=== PATIENT | female | born 1940 | race Caucasian/White ===

== ENCOUNTER → 2017-02-23 | Outpatient (CLI) | payer MEDICARE | END | disposition home or self-care (01) | LOC: PCVCCLINIC 15:14 | PROVIDERS: ATTEND Internal Medicine Cardiovascular Disease | DX: I25.708 Atherosclerosis of coronary artery bypass graft(s), unspecified, with other forms of angina pectoris (principal); I77.89 Other specified disorders of arteries and arterioles; E78.00 Pure hypercholesterolemia, unspecified; I12.9 Hypertensive chronic kidney disease with stage 1 through stage 4 chronic kidney disease, or unspecified chronic kidney disease; E11.22 Type 2 diabetes mellitus with diabetic chronic kidney disease; N18.9 Chronic kidney disease, unspecified; Z95.1 Presence of aortocoronary bypass graft; Z95.5 Presence of coronary angioplasty implant and graft; Z88.0 Allergy status to penicillin; Z88.8 Allergy status to other drugs, medicaments and biological substances; Z79.84 Long term (current) use of oral hypoglycemic drugs; Z79.899 Other long term (current) drug therapy; Z86.73 Personal history of transient ischemic attack (TIA), and cerebral infarction without residual deficits; Z90.710 Acquired absence of both cervix and uterus | CPT/HCPCS: 80061; 93005; G0463 ==

== ENCOUNTER → 2017-06-29 | Outpatient (CLI) | payer MEDICARE ==
[~2017-06-29] MED LIST: REGADENOSON 0.4 MG/5 ML DISP.SYRIN. IV ONE
--- NOTE | 2017-06-29 09:51 | PCVCIMAG ---
APPROVED REPORT Patient Location: Out-Patient Indications Stenosis Surgery/Intervention Carotid Stent: left Doppler Spectral Velocity Analysis PSV / EDVPSV / EDV ECA (R) 148 / 13 cm/sECA (L) 241 / 25 cm/s dICA (R) 90 / 33 cm/sdICA (L) 64 / 23 cm/s Breanne (R) 177 / 69 cm/smICA (L) 63 / 25 cm/s pICA (R) 190 / 59 cm/spICA (L) 46 / 19 cm/s Bulb (R) 101 / 30 cm/sBulb (L) 64 / 16 cm/s dCCA (R) 67 / 21 cm/sdCCA (L) 64 / 21 cm/s mCCA (R) 87 / 18 cm/smCCA (L) 90 / 26 cm/s Vert (R) 39 / 13 cm/sVert (L) 63 / 23 cm/s ICA/CCA ICA/CCA Findings The right carotid bulb has moderate calcified plaque. The right proximal internal carotid artery shows 60-70% stenosis. The right common carotid artery shows no significant stenosis. The right external carotid artery shows >50% stenosis. The left carotid bulb has mild plaque. The left proximal internal carotid artery shows no significant stenosis. Widely patent LICA and Lt common carotid artery stent. The left common carotid artery shows no significant stenosis. The left external carotid artery shows >60% stenosis. Conclusion 1. Right internal carotid artery stenosis (60-70%) 2. Widely patent left internal and common carotid artery stent 3. Antegrade vertebral flow
--- NOTE | 2017-06-29 11:37 | PCVCIMAG ---
EXAM: ULTRASOUND OF THE THYROID INDICATION: Thyroid nodules. FINDINGS: The right thyroid lobe measures 5.2 x 2.7 x 2.8 cm. The left thyroid lobe measures 5.0 x 2.3 x 1.9 cm. Several predominantly solid nodules throughout both thyroid lobes which contain small internal cystic spaces. The largest nodule on the right is in the mid thyroid lobe measuring 1.3 x 2.3 x 2.4 cm. The largest nodule on the left is also in the mid thyroid lobe measuring 1.1 x 1.5 x 1.7 cm. IMPRESSION: Findings most consistent with multinodular goiter. Predominantly solid nodules in both thyroid lobes as described. Further evaluation by ENT could be done if needed clinically. LOC:[id number]
--- NOTE | 2017-06-30 15:58 | PCVCIMAG ---
APPROVED REPORT Exam: Nuclear Stress Test Indication: CAD, Pre op shoulder surgery Patient Location: Out-Patient Stress Nurse: Candi Razo RN AR Tech:EMILEE Ceja Ht: 4 ft 10 in Wt: 155 lbs BSA: 1.63 m2 HR: 83 bpm BP: 185/83 mmHg BMI: 32.3 Rhythm: NSR Medical History Medical History: Hyperlipidemia, CVD, Age Medications: Amlodipine, Atorvastatin, Furosemide, Losartan, Meloxicam, Metformin, Metoprolol (held 24 hours) Priolosec, Ditropan Allergies: Cortiaone, PCN, Prednisone Previous Cardiac Procedures: Prior CABG, Cath 2015 Pretest Chest Pain Characteristics: No chest pain Exercise History: Sedentary AR EXAM: Myocardial Perfusion REST/STRESS Imaging Protocol: Rest Tc-99m/Stress Tc-99m 1 day Resting Data Rest SPECT myocardial perfusion imaging was performed in upright position 45 minutes following the intravenous injection of 15.9 mCi of Tc-99m Sestamibi. Time of rest injection: 0945 Date: 06/29/2017 Administration Route: IV Administration Site: Left Hand Pharmacologic Stress Pharmacologic stress test was performed by injecting Regadenoson 0.4 mg IV push followed by the intravenous injection of 42.9 mCi of Tc-99m Sestamibi. Time of stress injection: 1130 Date: 06/29/2017 Administration Route: IV Administration Site: Left Hand Gated Stress SPECT was performed 45 minutes after stress injection. The images were gated to evaluate regional wall motion and calculate left ventricular ejection fraction. Study Quality Study: Good Study Data Post stress, the left ventricular ejection was 61%.. SSS: 0 SRS: 0 SDS: 0 TID = 0.98. Perfusion No evidence of stress induced ischemia or prior myocardial infarction. Wall Motion Normal left ventricular size and function with no regional wall motion abnormalities. Nuclear Conclusion No evidence of stress induced ischemia or prior myocardial infarction. Normal left ventricular size and function with no regional wall motion abnormalities. Post stress, the left ventricular ejection was 61%.. No change since prior study dated March 2016. Interpreted by: Channing Barr MD Electronically Approved: 06/29/2017 14:11:46 Stress Test Details Stress Test: Pharmacologic stress testing performed using 0.4 mg of regadenoson per 5 mL given IV over 10 seconds. Reason for pharmacologic stress test: physical limitation. HR Resting HR: 83 bpmMax Heart Rate (APMHR): 141 bpm Max HR Achieved: 123 bpmTarget HR (85% APMHR): 119 bpm % of APMHR: 87 Recovery HR: 105 bpm BP Resting BP: 185/83 mmHg Max BP: 201/102 mmHg ECG Resting ECG: Sinus Rhythm, nonspecific ST-T abnormalities Stress ECG: Sinus Rhythm, nonspecific ST-T abnormalities Recovery ECG: Sinus Rhythm, nonspecific ST-T abnormalities Clinical Reason for Termination: Completed protocol Stress Symptoms: Nausea, Chest Heaviness Exercise duration: 0 min 55 sec Exercise capacity: 1.0 METs Symptoms resolved during recovery. Stress ECG Conclusion ECG: Non-ischemic <Conclusion> ECG: Non-ischemic
== END | disposition home or self-care (01) ==
LOC: PCVCIMAG 08:35
PROVIDERS: ATTEND Internal Medicine Cardiovascular Disease
DX: Z01.810 Encounter for preprocedural cardiovascular examination (principal); I65.23 Occlusion and stenosis of bilateral carotid arteries; E04.2 Nontoxic multinodular goiter; I25.10 Atherosclerotic heart disease of native coronary artery without angina pectoris; K52.9 Noninfective gastroenteritis and colitis, unspecified; I12.9 Hypertensive chronic kidney disease with stage 1 through stage 4 chronic kidney disease, or unspecified chronic kidney disease; N18.9 Chronic kidney disease, unspecified; I44.7 Left bundle-branch block, unspecified; E11.22 Type 2 diabetes mellitus with diabetic chronic kidney disease; Z90.49 Acquired absence of other specified parts of digestive tract; Z90.710 Acquired absence of both cervix and uterus; Z79.899 Other long term (current) drug therapy; Z79.82 Long term (current) use of aspirin; Z95.828 Presence of other vascular implants and grafts; Z88.0 Allergy status to penicillin; Z88.8 Allergy status to other drugs, medicaments and biological substances; Z95.5 Presence of coronary angioplasty implant and graft
CPT/HCPCS: 76536; 78452; 80061; 93005; 93017; 93880; A9500; G0463; J2785

== ENCOUNTER → 2018-11-17 | Outpatient (CLI) | payer MEDICARE ==
--- NOTE | 2018-11-17 15:22 | PCVCIMAG ---
EXAM: BILATERAL CAROTID DUPLEX INDICATION: Carotid Occlusive Disease. FINDINGS: Doppler Measurements (centimeters per second): RIGHT: Peak CCA-58, Peak ECA-207, Diastolic ICA-47, Peak ICA-182, ICA/CCA Ratio-3.1. LEFT: Peak CCA-70, Peak ECA-240, Diastolic ICA-18, Peak ICA-64, ICA/CCA Ratio-0.9. RIGHT CAROTID: The carotid bulb has moderate plaque. The proximal internal carotid artery shows 60-70% stenosis. The common carotid artery shows no significant stenosis. The external carotid artery shows 60% stenosis. LEFT CAROTID: Good color flow throughout a prior stent in the upper common carotid and extending into the proximal internal carotid artery. The proximal internal carotid artery shows no significant stenosis. The common carotid artery shows no significant stenosis. The external carotid artery shows 70% stenosis. Antegrade flow in both vertebral arteries. IMPRESSION: 60-70% stenosis of the right internal carotid artery with moderate plaque. Prior left carotid artery stent maintaining satisfactory patency. No change since June 2017. LOC:[id number]
== END | disposition home or self-care (01) ==
LOC: PCVCIMAG 13:04
PROVIDERS: ATTEND Internal Medicine Cardiovascular Disease
DX: I65.23 Occlusion and stenosis of bilateral carotid arteries (principal); I25.10 Atherosclerotic heart disease of native coronary artery without angina pectoris; I10 Essential (primary) hypertension; E78.00 Pure hypercholesterolemia, unspecified; E11.9 Type 2 diabetes mellitus without complications; E78.5 Hyperlipidemia, unspecified; Z79.84 Long term (current) use of oral hypoglycemic drugs; Z79.899 Other long term (current) drug therapy; Z79.82 Long term (current) use of aspirin
CPT/HCPCS: 36415; 80061; 93005; 93880; G0463

== ENCOUNTER → 2019-06-20 | Outpatient (CLI) | payer MEDICARE ==
--- NOTE | 2019-06-20 15:49 | PCVCIMAG ---
APPROVED REPORT Study performed: 06/20/2019 12:59:09 EXAM: Comprehensive 2D, Doppler, and color-flow Echocardiogram Patient Location: Echo lab Status: routine BSA: 1.62 HR: 70 bpmBP: 122/78 mmHg Rhythm: NSR Other Information Study Quality: Adequate Risk Factors: Cardiac Risk Factors: HTN, DM Indications CAD 2D Dimensions IVSd: 10.58 (7-11mm) LVDd: 40.91 mm PWd: 10.69 (7-11mm)Ascending Ao: 30.87 (22-36mm) LVDs: 29.64 (25-40mm) Left Atrium: 38.32 (27-40mm) Aortic Root: 29.54 mm LV Single Plane 4CH: 57.64 % LV Single Plane 2CH: 53.97 % Biplane EF: 56.6 % Volumes Left Atrial Volume (Systole) Single Plane 4CH: 45.65 mLSingle Plane 2CH: 38.19 mL LA ESV Index: 26.00 mL/m2 Aortic Valve AoV Peak Pelon.: 1.27 m/s AO Peak Gr.: 6.46 mmHgLVOT Max P.20 mmHg LVOT Max V: 0.74 m/s Mitral Valve E/A Ratio: 0.6 MV Decel. Time: 264.79 ms MV E Max Pelon.: 0.51 m/s MV A Pelon.: 0.92 m/s IVRT: 183.39 ms Pulmonary Valve PV Peak Pelon.: 0.72 m/sPV Peak Gr.: 2.09 mmHg Pulmonary Vein P Vein S: 0.23 m/sP Vein A: 0.33 m/s P Vein D: 0.31 m/sP Vein A Dur.: 110.7 msec P Vein S/D Ratio: 0.74 Tricuspid Valve TR Peak Pelon.: 2.60 m/s TR Peak Gr.: 26.95 mmHg Left Ventricle The left ventricle is normal size. There is normal LV segmental wall motion. There is normal left ventricular wall thickness. Left ventricular systolic function is normal. The left ventricular ejection fraction is within the normal range. LVEF is 55-60%. Grade I - abnormal relaxation pattern. Right Ventricle The right ventricle is normal size. The right ventricular systolic function is normal. Atria The left atrium size is normal. The right atrium size is normal. Aortic Valve The aortic valve is normal in structure. Trace aortic regurgitation. There is no aortic valvular stenosis. Mitral Valve The mitral valve is normal in structure. Mild mitral regurgitation. No evidence of mitral valve stenosis. Tricuspid Valve The tricuspid valve is normal in structure. Mild tricuspid regurgitation with PAP of 34 mmHg. Pulmonic Valve The pulmonary valve is normal in structure. There is no pulmonic valvular regurgitation. Great Vessels The aortic root is normal in size. IVC is normal in size and collapses >50% with inspiration. Pericardium There is no pericardial effusion. There is no pleural effusion. <Conclusion> The left ventricle is normal size. LVEF is 55-60%. Grade I - abnormal relaxation pattern. The right ventricle is normal size. The left atrium size is normal. Trace aortic regurgitation. Mild mitral regurgitation. Mild tricuspid regurgitation with PAP of 34 mmHg. The aortic root is normal in size. There is no pericardial effusion.
== END | disposition home or self-care (01) ==
LOC: PCVCIMAG 12:37
PROVIDERS: ATTEND Internal Medicine Cardiovascular Disease
DX: I08.1 Rheumatic disorders of both mitral and tricuspid valves (principal); I25.10 Atherosclerotic heart disease of native coronary artery without angina pectoris; E78.00 Pure hypercholesterolemia, unspecified; I65.23 Occlusion and stenosis of bilateral carotid arteries; E11.9 Type 2 diabetes mellitus without complications; I10 Essential (primary) hypertension; Z79.82 Long term (current) use of aspirin
CPT/HCPCS: 36415; 80061; 93005; 93306; G0463